=== PATIENT | female | born 1960 | race Caucasian/White ===

== ENCOUNTER → 2016-12-10 | Outpatient (CLI) | payer BC ==
[~2016-12-10] MED LIST: AMT10 PO; PANT40TA PO; SYN75 PO
--- NOTE | 2016-12-10 11:33 | DIAGNOSTIC IMAGING REPORT ---
ABDOMINAL ULTRASOUND, RIGHT UPPER QUADRANT HISTORY: Pain. OTHER SPECIFIED ABNORMAL FINDINGS OF BLOOD. COMPARISON: None. FINDINGS: Pancreas: The pancreas demonstrates a normal echotexture. Liver: Unremarkable. Gallbladder: Prior cholecystectomy CBD: 4 mm Right kidney: No hydronephrosis. IMPRESSION: Normal study post cholecystectomy Electronically signed by: Roberto Snell M.D. 12/10/2016 11:31 AM Dictated Date/Time: 12/10/2016 11:30 AM
== END | disposition home or self-care (01) ==
LOC: C.ULTRBC 10:48
PROVIDERS: ATTEND Family Medicine
DX: R79.89 Other specified abnormal findings of blood chemistry (principal)

== ENCOUNTER → 2017-08-08 | Outpatient (CLI) | payer BC ==
--- NOTE | 2017-08-09 12:57 | MAMMOGRAPHY REPORT ---
BILATERAL DIGITAL SCREENING MAMMOGRAM TOMOSYNTHESIS WITH CAD: 08/08/2017 CLINICAL HISTORY: Routine screening. Patient has no complaints. TECHNIQUE: Breast tomosynthesis in addition to standard 2D mammography was performed. Current study was also evaluated with a Computer Aided Detection (CAD) system. COMPARISON: Comparison is made to exams dated: 08/16/2016 ultrasound, 08/16/2016 mammogram, 08/06/20 16 mammogram, 08/02/2015 mammogram, 07/28/2014 mammogram, and 07/27/2013 mammogram - [facility]. BREAST COMPOSITION: There are scattered areas of fibroglandular density in both breasts. FINDINGS: There is a small 7 mm nodular asymmetry seen within the right lateral breast on the cc vie w, not clearly evident on the MLO view, for which spot compression tomosynthesis views and possible b reast ultrasound are recommended for further evaluation. The remainder of both breasts are stable compared to prior exams, without suspicious masses, calcific ations, or areas of architectural distortion noted. A few scattered bilateral benign-appearing calci fications are not significantly changed. Asymmetry in the left lateral breast on the cc view is stab le compared to prior exams. IMPRESSION: ACR BI-RADS CATEGORY 0: INCOMPLETE EVALUATION: NEED ADDITIONAL IMAGING EVALUATION Right breast asymmetry, for which additional imaging evaluation is recommended. The patient will be called to schedule an appointment. Approximately 10% of breast cancers are not detected with mammography. A negative mammographic report should not delay biopsy if a clinically suggestive mass is present. Radha Terry M.D. /:08/08/2017 16:10:35 Mission Support Specialist: Sunni FRITZ(Nayla)(M), [facility] letter sent: Addl Imaging 0 BI-RADS Code: ACR BI-RADS Category 0: Incomplete Evaluation: Need Additional Imaging Evaluation
== END | disposition home or self-care (01) ==
LOC: C.MAMM 07:04
PROVIDERS: ATTEND Family Medicine
DX: Z12.31 Encounter for screening mammogram for malignant neoplasm of breast (principal); R92.8 Other abnormal and inconclusive findings on diagnostic imaging of breast

== ENCOUNTER → 2017-11-14 | Outpatient (CLI) | payer OTHER ==
--- NOTE | 2017-11-14 15:10 | MAMMOGRAPHY REPORT ---
UNILATERAL RIGHT DIGITAL DIAGNOSTIC MAMMOGRAM TOMOSYNTHESIS AND TARGETED RIGHT ULTRASOUND: 11/14/2017 CLINICAL HISTORY: Callback from screening mammogram for right breast asymmetry. TECHNIQUE: Breast tomosynthesis in addition to standard 2D mammography was performed. Spot compress ion right CC and MLO 2D and tomosynthesis images were obtained. COMPARISON: Comparison is made to exams dated: 08/08/2017 mammogram, 08/16/2016 ultrasound, 08/16/20 16 mammogram, 08/06/2016 mammogram, 08/02/2015 mammogram, and 07/28/2014 mammogram - [facility]. BREAST COMPOSITION: There are scattered areas of fibroglandular density in the right breast. FINDINGS: The previously described asymmetry within the right lateral breast on the cc view persists on the additional spot compression view and measures approximately 6 mm. No clear correlate is seen on the MLO view. The appearance of the asymmetry on the spot compression cc view does not appear sig nificantly changed compared to the July 2016 spot compression views. Targeted ultrasound was performed of the right lateral breast in the region of the mammographic asymm etry. In the right breast at 9:00, 3 cm from the nipple, there is a small cluster of anechoic cysts which measures 9 x 4 x 5 mm. This corresponds with the mammographic asymmetry and is consistent with a microcyst cluster. IMPRESSION: ACR BI-RADS CATEGORY 2: BENIGN, TARGETED ULTRASOUND ACR BI-RADS CATEGORY 2: BENIGN The right lateral breast asymmetry corresponds with a benign 9 mm microcyst cluster in the right 9:00 breast on ultrasound. There is no mammographic or targeted sonographic evidence of malignancy. Retur n to annual mammogram screening schedule is recommended, due July 2018. The patient has been verbally notified of the results. Approximately 10% of breast cancers are not detected with mammography. A negative mammographic report should not delay biopsy if a clinically suggestive mass is present. Radha Terry M.D. /:11/14/2017 12:02:09 Tester Operator Helper: Mellisa Damon, [facility] letter sent: Normal 1/2 BI-RADS Code: ACR BI-RADS Category 2: Benign Ultrasound BI-RADS: ACR BI-RADS Category 2: Benign
== END | disposition home or self-care (01) ==
LOC: C.MAMM 11:27
PROVIDERS: ATTEND Family Medicine
DX: R92.8 Other abnormal and inconclusive findings on diagnostic imaging of breast (principal)

== ENCOUNTER 2023-10-28 15:23 | Observation (INO) ==
[2023-10-28 16:09] LABS: Basophils # (auto) 0.01 K/uL (0.00-0.20); Basophils % (auto) 0.1 %; Eosinophils # (auto) 0.01 K/uL (0.00-0.50); Eosinophils % (auto) 0.1 %; Hematocrit (blood only) 44.5 % (37.0-47.0); Hemoglobin 15.3 g/dl (12.0-16.0); Immature Granulocytes # (auto) 0.04 K/uL (0.01-0.20); Immature Granulocytes % (auto) 0.3 %; Lymphocytes # (auto) 1.18 K/uL (1.20-3.40); Mean Corpuscular Hemoglobin 30.3 pg (25.0-34.0); Mean Corpuscular Hgb Conc 34.4 g/dL (32.0-36.0); Mean Corpuscular Volume 88.1 fL (80.0-100.0); Mean Platelet Volume 10.9 fL (9.4-12.4); Monocytes # (auto) 0.42 K/uL (0.11-0.59); Monocytes % (auto) 2.8 %; Neutrophils # (auto) 13.14 K/uL (1.40-6.50); Neutrophils % (auto) 88.7 %; Platelet Count 295 K/uL (130-400); RDW Coefficient of Variation 13.4 % (11.5-14.5); RDW Standard Deviation 43.2 fL (36.4-46.3); Red Blood Count 5.05 M/uL (4.20-5.40)
[2023-10-28 16:33] LABS: Alanine Aminotransferase 16 U/L (7-52); BUN Creatinine Ratio 21.1 (10-20); Bilirubin,Total 0.4 mg/dl (0.2-1.0); Blood Urea Nitrogen 15 mg/dl (6-23); Calcium 9.1 mg/dl (8.6-10.3); Carbon Dioxide 25 mmol/L (21-32); Chloride 106 mmol/L (98-107); Creatinine Clr Calc Pharmacy 86.7 ml/min; Est GFR (African American) 105.1 ml/min; Est GFR (Non-African American) 90.7 ml/min; Glucose 144 mg/dl (70-99(Fasting)); Total Protein 8.3 gm/dl (6.0-8.3); Troponin I High Sensitivity 4.1 pg/ml (0-14)
[2023-10-28 16:46] LABS: Lipase 7142 U/L (11-82)
--- NOTE | 2023-10-28 16:58 | XRay Report ---
XR chest 1V not portable HISTORY: 62 years-old Female Chest pain, nonspecific COMPARISON: 03/24/2010 TECHNIQUE: PA view the chest FINDINGS: Cardiomediastinal side the normal limits. No pneumothorax, pleural effusion or airspace collimation. Cholecystectomy. Bones appear grossly intact. IMPRESSION: No acute process. ACT 112: Negative or not required by law. The above report was generated using voice recognition software. It may contain grammatical, syntax o r spelling errors. Electronically signed by: Salvador Jean M.D. 10/28/2023 4:56 PM
--- NOTE | 2023-10-28 17:03 | Electrocardiogram Report ---
Test Reason : Blood Pressure : / mmHG Vent. Rate : 102 BPM Atrial Rate : 102 BPM P-R Int : 132 ms QRS Dur : 076 ms QT Int : 406 ms P-R-T Axes : 089 087 077 degrees QTc Int : 529 ms Sinus tachycardia Biatrial enlargement Diffuse Nonspecific ST and T wave abnormality Abnormal ECG When compared with ECG of 25-APR-2010 11:48, HR has increased by [address] and T wave abnormality now present Confirmed by Adama Mckeon ([id number]) on 10/28/2023 5:03:02 PM Referred By: Confirmed By:Adama Mckeon
[2023-10-28 17:19] LABS: Albumin Level 4.7 gm/dl (3.4-5.0)
[2023-10-28] MEDS: HYDROmorphone INJ 0.5 MG/0.5 ML SYR IV STA (17:20)
[2023-10-28] MEDS: SODIUM CHLORIDE 0.9% 1,000 ML IV ONE (17:21)
[2023-10-28 17:31] LABS: Partial Thromboplastin Ratio 1.1; Partial Thromboplastin Time 30 Seconds (21-31); Prothrombin Time 10.7 Seconds (9.0-12.0)
[2023-10-28] MEDS: OPTIRAY 320 500ml IV ONE (17:34)
--- NOTE | 2023-10-28 17:52 | CT Scan Report ---
ABDOMEN AND PELVIS CT WITH IV CONTRAST CT DOSE: 1125.14 mGy.cm HISTORY: Acute generalized abdominal pain abd pain TECHNIQUE: Multiaxial CT images of the abdomen and pelvis were performed following the IV administrat ion of 86 cc of Optiray, A dose lowering technique was utilized adhering to the principles of ALARA. COMPARISON STUDY: 02/04/2009 FINDINGS: No acute lower thoracic abnormality. No free air. Unremarkable spleen, and adrenal glands. Cholecystectomy with likely postsurgical mild intrahepatic and extrahepatic biliary ductal dilation. Patency of the hepatic and portal veins. The splenic vein also appears patent. Interstitial and perip ancreatic edema with small amount of ascites noted within the lesser sac. Homogeneous enhancement of the pancreas. No pancreatic mass, acute pancreatic fluid collection or pancreatic ductal dilation is identified. Mild reactive wall thickening of the duodenal. Tiny hiatal hernia. No hydronephrosis. Unremarkable urinary bladder and uterus. Mild atherosclerosis of the aorta. No lym phadenopathy. Colonic diverticulosis. Mild fecal retention. Normal appendix. No acute fracture. IMPRESSION: 1. Moderate acute pancreatitis. No evidence of pancreatic necrosis or acute peripancreatic fluid whit[place] ection. 2. Cholecystectomy. 3. No bowel obstruction or pneumoperitoneum. 4. Colonic diverticulosis. ACT 112: Negative or not required by law. The above report was generated using voice recognition software. It may contain grammatical, syntax o r spelling errors. Electronically signed by: Salvador Jean M.D. 10/28/2023 5:50 PM
--- NOTE | 2023-10-28 18:22 | Emergency Department Note ---
Impression & Plan Acute pancreatitis ED Provider Note NAME: LETICIA LEWIS AGE: 62 SEX: F : 1960 ARRIVES VIA: Walk-In INFORMANT: Patient, ED PROVIDER(S): Macho Casillas MD CHIEF COMPLAINT: Abdominal pain HPI: This is a 62-year-old female presenting for abdominal pain. Patient states that this afternoon around 11 AM she Began having significant abdominal pain, vomiting patient notes that she was also diaphoretic with this and had significant pressure in her gastric region. She states that her symptoms are actually somewhat improving and that she has less pain in her right now. She has more pressure at this time when she stands. If he does sit down with the pain is excruciating. This feels like previous pancreatitis she has had. She had pancreatitis about 3 previous times. She has quit drinking for the past 12 years. Notes no recent other illicit drug use. 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 ROS: See above HPI for pertinent positives & negatives. A total of 10 systems reviewed and were otherwise negative. PAST MEDICAL HISTORY: See Below PAST SURGICAL HISTORY: See Below FAMILY HISTORY: See Below SOCIAL HISTORY: See Below HOME MEDICATIONS: See Below ALLERGIES: See Below VITALS: See Below PHYSICAL EXAMINATION: General: resting comfortably in no acute distress Head: Normocephalic and atraumatic Eyes: Normal inspection, extraocular muscles intact Ear, nose, throat: Normal external exam Neck: Normal range of motion Respiratory: lungs clear to auscultation bilaterally Cardiovascular: Regular rate/rhythm, no murmur GI: soft, nontender, no guarding or rebound Extremities: nontender, moves all extremities Neuro: The patient awake and alert, appropriately conversive, no focal deficits, symmetric faces Skin: Warm, dry, and intact MEDICAL DECISION MAKING: This is 62-year-old female presenting abdominal pain. Currently patient is somewhat comfortable with pain upon standing and worsening pain when sitting. She does have epigastric tenderness, no rebound or guarding. -Blood work is reviewed showing a leukocytosis up to 14.8. Otherwise her AST is minimally elevated at 42. Otherwise lipase is significant elevated at 7142. Patient has a cholecystectomy making choledocholithiasis very unlikely. -Patient likely has acute pancreatitis based on clinical findings. Will do CT to ensure there is no peripancreatic abscess or necrosis. -Will plan for pain control, nausea pancreatitis Differential diagnosis: Pancreatitis, SBO, renal colic, choledocholithiasis ER treatment provided: See below Diagnostics interpreted by me: ECG: ECG independently interpreted by me with sinus tachycardia, rate of 102, normal axis, normal CT, normal QRS, normal QTc, no ST segment elevations consistent with STEMI criteria] Cardiac Monitoring: An order was placed for continuous cardiac monitoring. The monitor shows a rate of 78 with sinus rhythm. Laboratory studies: As stated above and show below. Imaging studies: See below. Past Med/Surg History Medical History (Updated 10/29/23 @ 00:12 by Macoh Casillas MD) UTI (urinary tract infection) Acute pancreatitis Surgical History History of tooth extraction History of cholecystectomy History of colonoscopy Family History Father Diabetes Coronary heart disease Myocardial infarction Colon cancer Hypertension Heart disease Mother Asthma Other No family history of adverse response to anesthesia No family history of bleeding disorder Social History Smoking Status: Never smoker Second Hand Exposure: No; Do You Dip or Chew Tobacco: No; Tobacco Cessation Education Requested by Patient: No Hx Alcohol Use: No Hx Substance Use: No Preferred Language: Upper Sorbian Communication Ability: Effective 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 current occupational status: retired Other Information That Helps Us Care for You: No Feels Safe at Home: Yes Safety Concerns: Feels Safe At This Time Assistive Devices: Glasses Allergies Allergies Allergy/AdvReac Type Severity Reaction Status Date / Time No Known Allergies Allergy Verified 10/28/23 18:02 Home Meds Home Medications Medication Instructions Recorded Confirmed amitriptyline 10 mg tablet 10 mg PO HS 04/03/19 10/28/23 levothyroxine 100 mcg capsule 100 mcg PO DAILYBB 10/26/19 10/28/23 topiramate 25 mg tablet (Topamax) 12.5 mg PO BID 05/15/22 10/28/23 modafinil 200 mg tablet 200 mg PO QDL 10/28/23 10/28/23 zolpidem 5 mg tablet 5 - 10 mg PO HS 10/28/23 10/28/23 Previous Rx's Medication Instructions Recorded methylphenidate HCl 20 mg tablet 20 mg PO BID Narcolepsy #180 tabs 10/18/23 Results & Data (ED) Vital Signs Vital Signs - 24 hr 10/28/23 15:23 10/28/23 15:23 10/28/23 17:17 Temperature 36.6 C Temperature Source Temporal Artery Scan Pulse Rate 117 H Pulse Rate [Right Finger] 117 H Respiratory Rate 16 16 16 Respiratory Effort / Characteristics Non-Labored Respiratory Depth Normal Respiratory Pattern Regular Blood Pressure 165/114 H Blood Pressure [Right Arm] 139/84 Blood Pressure Mean 131 Blood Pressure Mean [Right Arm] 102 Blood Pressure Position [Right Arm] Sitting Pulse Oximetry 98 92 Oxygen Delivery Method Room Air Sepsis Recent Fever Within 48 Hours No Sepsis New/Unexplained Change in Mental Status N/A Sepsis Action Taken by Nursing No Action Required 10/28/23 17:30 10/28/23 18:30 Temperature Temperature Source Pulse Rate 72 Pulse Rate [Right Finger] 84 Respiratory Rate 24 Respiratory Effort / Characteristics Respiratory Depth Normal Respiratory Pattern Regular Blood Pressure Blood Pressure [Right Arm] 138/84 Blood Pressure Mean Blood Pressure Mean [Right Arm] 102 Blood Pressure Position [Right Arm] Lying Pulse Oximetry 99 Oxygen Delivery Method Room Air Sepsis Recent Fever Within 48 Hours Sepsis New/Unexplained Change in Mental Status Sepsis Action Taken by Nursing Laboratory Data 10/28/23 15:47 10/28/23 16:32 Lab Results 10/28/23 10/28/23 Range/Units 15:47 16:32 WBC 14.80 H (4.8-10.8) K/ul RBC 5.05 (4.20-5.40) M/uL Hgb 15.3 (12.0-16.0) g/dl Hct 44.5 (37.0-47.0) % MCV 88.1 (80.0-100.0) fL MCH 30.3 (25.0-34.0) pg MCHC 34.4 (32.0-36.0) g/dL RDW Std Deviation 43.2 (36.4-46.3) fL RDW Coeff of Sondra 13.4 (11.5-14.5) % Plt Count 295 (130-400) K/uL MPV 10.9 (9.4-12.4) fL Immature Gran % (Auto) 0.3 % Neut % (Auto) 88.7 % Lymph % (Auto) 8.0 % [place] % (Auto) 2.8 % Eos % (Auto) 0.1 % Baso % (Auto) 0.1 % Neut # (Auto) 13.14 H (1.40-6.50) K/uL Lymph # (Auto) 1.18 L (1.20-3.40) K/uL [place] # (Auto) 0.42 (0.11-0.59) K/uL Eos # (Auto) 0.01 (0.00-0.50) K/uL Baso # (Auto) 0.01 (0.00-0.20) K/uL Immature Gran # (Auto) 0.04 (0.01-0.20) K/uL PT Cancelled 10.7 INR Cancelled 1.0 APTT Cancelled 30 PTT Ratio Cancelled 1.1 Sodium TNP 140 Potassium TNP 4.0 Chloride 106 (98-107) mmol/L Carbon Dioxide 25 (21-32) mmol/L Anion Gap TNP BUN 15 (6-23) mg/dl Creatinine 0.71 (0.6-1.2) mg/dl Est Cr Clr Drug Dosing 86.7 ml/min Est GFR ( Amer) 105.1 ml/min Est GFR (Non-Af Amer) 90.7 ml/min BUN/Creatinine Ratio 21.1 H (10-20) Glucose 144 H (70-99(Fasting)) mg/dl Calcium 9.1 (8.6-10.3) mg/dl Total Bilirubin 0.4 (0.2-1.0) mg/dl AST TNP 42 H ALT 16 (7-52) U/L Alkaline Phosphatase TNP 116 H Troponin I High Sens 4.1 (0-14) pg/ml Total Protein 8.3 (6.0-8.3) gm/dl Albumin TNP 4.7 Globulin TNP Albumin/Globulin Ratio TNP Triglycerides 68 (0-150) mg/dl Cholesterol 225 H (0-200) mg/dl LDL Cholesterol, Calc 114 mg/dl VLDL Cholesterol, Calc 14 (0-30) mg/dl HDL Cholesterol 97 mg/dl Cholesterol/HDL Ratio 2.3 (0-5) Lipase 7142 H (11-82) U/L Administered Medications Amitriptyline HCl (Amitriptyline Hcl 10 Mg Tab) 10 mg PO HS WILLIAM Stop: 11/27/23 20:59 Last Admin: 10/28/23 21:01 Dose: 10 mg Documented By: LIV Lactated Ringer's (Lr) 1,000 mls @ 125 mls/hr IV .Q8H WILLIAM Stop: 11/27/23 18:59 Last Admin: 10/28/23 21:00 Dose: 125 mls/hr Documented By: LIV Acetaminophen (Ofirmev) 1,000 mg in 100 mls @ 400 mls/hr IV Q8H PRN PRN Reason: Pain Stop: 10/31/23 18:59 Last Infusion: 10/28/23 22:08 Dose: Infused Documented By: Admin: 10/28/23 21:00 Dose: 400 mls/hr Documented By: LIV Discontinued Medications Hydromorphone HCl (Hydromorphone Inj 0.5 Mg/0.5 Ml Syr) 0.5 mg IV NOW STA Stop: 10/28/23 17:07 Last Admin: 10/28/23 17:20 Dose: 0.5 mg Documented By: INA Sodium Chloride (Nss) 1,000 mls @ 999 mls/hr IV .Q1H1M ONE Stop: 10/28/23 18:07 Last Infusion: 10/28/23 18:39 Dose: Infused Documented By: Admin: 10/28/23 17:21 Dose: 999 mls/hr Documented By: INA Ioversol (Optiray 320 500ml) 86 ml IV ONCE ONE Stop: 10/28/23 17:35 Last Admin: 10/28/23 17:34 Dose: 86 ml Documented By: AKILAH Methylphenidate HCl (Methylphenidate Hcl 10 Mg Tablet) 20 mg PO BID WILLIAM Stop: 11/11/23 20:59 Last Admin: 10/28/23 21:01 Dose: 20 mg Documented By: LIV Zolpidem Tartrate (Zolpidem Tartrate 5 Mg Tab) 5 - 10 mg PO HS WILLIAM Stop: 11/27/23 20:59 Last Admin: 10/28/23 21:01 Dose: 5 mg Documented By: LIV Imaging Data Radiologist's Impression: Chest X-Ray 10/28/23 15:40 XR chest 1V not portable HISTORY: 62 years-old Female Chest pain, nonspecific COMPARISON: 03/24/2010 TECHNIQUE: PA view the chest FINDINGS: Cardiomediastinal side the normal limits. No pneumothorax, pleural effusion or airspace collimation. Cholecystectomy. Bones appear grossly intact. IMPRESSION: No acute process. ACT 112: Negative or not required by law. The above report was generated using voice recognition software. It may contain grammatical, syntax or spelling errors. Electronically signed by: Salvador Jean M.D. 10/28/2023 4:56 PM Abdomen/Pelvis CT 10/28/23 16:[address] WITH IV CONTRAST CT DOSE: 1125.14 mGy.cm HISTORY: Acute generalized abdominal pain abd pain TECHNIQUE: Multiaxial CT images of the abdomen and pelvis were performed following the IV administration of 86 cc of Optiray, A dose lowering technique was utilized adhering to the principles of ALARA. COMPARISON STUDY: 02/04/2009 FINDINGS: No acute lower thoracic abnormality. No free air. Unremarkable spleen, and adrenal glands. Cholecystectomy with likely postsurgical mild intrahepatic and extrahepatic biliary ductal dilation. Patency of the hepatic and portal veins. The splenic vein also appears patent. Interstitial and peripancreatic edema with small amount of ascites noted within the lesser sac. Homogeneous enhancement of the pancreas. No pancreatic mass, acute pancreatic fluid collection or pancreatic ductal dilation is identified. Mild reactive wall thickening of the duodenal. Tiny hiatal hernia. No hydronephrosis. Unremarkable urinary bladder and uterus. Mild atherosclerosis of the aorta. No lymphadenopathy. Colonic diverticulosis. Mild fecal retention. Normal appendix. No acute fracture. IMPRESSION: 1. Moderate acute pancreatitis. No evidence of pancreatic necrosis or acute peripancreatic fluid collection. 2. Cholecystectomy. 3. No bowel obstruction or pneumoperitoneum. 4. Colonic diverticulosis. ACT 112: Negative or not required by law. The above report was generated using voice recognition software. It may contain grammatical, syntax or spelling errors. Electronically signed by: Salvador Jean M.D. 10/28/2023 5:50 PM Discharge Plan Visit Data Chief Complaint: Illness Stated Complaint: ABD PAIN, VOMITING, FEVER, SHAKES ED Provider: Macho Casillas Discharge Problem: Acute pancreatitis Patient Disposition: Admitted As Inpatient Discharge Instructions Interventions: ED Discharge Assessment Last Done: 10/28/23 22:00
--- NOTE | 2023-10-28 18:38 | History & Physical Report ---
Date of Service October 28, 2023 Assessment & Plan (1) Acute pancreatitis: (2) Chronic migraine without aura: (3) Narcolepsy: (4) UTI (urinary tract infection): Plan This is a 62 y/o female patient with PMHx of migraines, narcolepsy, and recurrent pancreatitis who was admitted for management of acute pancreatitis. Acute pancreatitis - A/P CT with IV contrast showing moderate acute pancreatitis without evidence of necrosis or acute peripancreatic fluid collection. No pancreatic mass noted. - Lipase > 7000 on admission - Patient with history of cholecystectomy, making choledocholithiasis unlikely - No alcohol use for 12-13 years - Triglycerides normal in ED labs - Suspect pancreatitis may be related to use of Topamax, but idiopathic cause may also be considered given that patient has been on topamax for somewhere between 10-15 years. Topamax held - Since patient is noting improvement with her pain, will start Clear liquid diet to assess tolerance - IVF with LR @ 125 cc/hr - Zofran for nausea - Pain management with Tylenol 1g IV q8h as needed, and Dilaudid 0.5 mg Q4H as needed for breakthrough pain - Monitor CBC and CMP in am labs UTI? - Patient not referring dysuria or urinary frequency/urgency - Suprapubic tenderness on physical exam - U/A and U/Cx ordered Migraines - Topamax held due to suspicion of this being related to pancreatitis Narcolepsy - Continue Amitriptyline, Methylphenidate, and Zolpidem Hypothyroidism - Last TSH from 2019 was ~4 - Continue Levothyroxine 100 mcg qam Dispo: Med/Surg Fluids: LR @ 125 cc/hr Diet: Clear Liquid Code Status: Full History of Present Illness Chief Complaint: Abdominal pain Primary Care Provider: Christopher Yarbrough MD Ms. Sparks is a 62 y/o female with PMHx of Migraines, Narcolepsy, and prior episodes of acute pancreatitis who arrived to the ED due to epigastric pain associated to N/V, sweats, and shakiness that began at 10 am this morning. She had breakfast without any immediate response, but as the day went on she developed worsening epigastric pain that did not radiate anywhere else until it severe with 10/10 in intensity. Denies having any hematemesis, chest pain, SOB, syncope, weakness, malaise, or any other associated symptom. She has had 3 episodes of pancreatitis in the past, the most recent being 12-13 years ago, so she recognized the symptoms as likely pancreatitis and chose to not eat anything since her symptoms began. On arrival to the ED, she states her pain has improved somewhat but was still severe. She denies any history of drinking alcohol since her last episode of pancreatitis 13 years ago, and only family history she has of pancreatitis is of her grandfather. Surgical history remarkable for cholecystectomy. She has a history of migraines, for which she takes Topamax. Denies NSAID use and only uses Tylenol as needed for pain control. ED course: NSS 1L, pain management with Dilaudid 0.5mg IV x1 Labs/Imaging: CBC without anemia and only remarkable for leukocytosis of 14.80 with neutrophilic predominance, CMP with no electrolyte disturbance, Creatinine of 0.71, Glucose of 144, AST of 42, ALT of 14, and Alk phos of 116. Lipid profile with normal Triglycerides (68). Lipase elevated at 7142. CXR unremarkable. Abdominal/Pelvic CT with IV contrast showing (1) Moderate acute pancreatitis without evidence of pancreatic necrosis or acute peripancreatic fl uid collection, and (2) Colonic diverticulosis. No bowel obstruction or pneumoperitoneum noted. Allergies Allergy/AdvReac Type Severity Reaction Status Date / Time No Known Allergies Allergy Verified 10/28/23 18:02 Home Medications Medication Instructions Recorded Confirmed Type amitriptyline 10 mg tablet 10 mg PO HS 04/03/19 10/28/23 History levothyroxine 100 mcg capsule 100 mcg PO DAILYBB 10/26/19 10/28/23 History topiramate 25 mg tablet (Topamax) 12.5 mg PO BID 05/15/22 10/28/23 History methylphenidate HCl 20 mg tablet 20 mg PO BID Narcolepsy #180 tabs 10/18/23 10/28/23 Rx modafinil 200 mg tablet 200 mg PO QDL 10/28/23 10/28/23 History zolpidem 5 mg tablet 5 - 10 mg PO HS 10/28/23 10/28/23 History Past Med/Surg History Medical History (Updated 10/28/23 @ 18:51 by Ofelia Szymanski MD) UTI (urinary tract infection) Acute pancreatitis Surgical History History of tooth extraction History of cholecystectomy History of colonoscopy Family History Father Diabetes Coronary heart disease Myocardial infarction Colon cancer Hypertension Heart disease Mother Asthma Other No family history of adverse response to anesthesia No family history of bleeding disorder Social History Smoking Status: Never smoker Do You Dip or Chew Tobacco: No; Hx Alcohol Use: No Hx Substance Use: No Preferred Language: Bulgarian marital status: Current Living Situation: Family current occupational status: retired Feels Safe at Home: Yes Review of Systems Review of Systems: As per HPI Physical Exam Physical Exam: GENERAL: AAOx3, Afebrile, No acute distress HEAD: AT, NC EYES: EOM intact, CIRILO THROAT: Normal to visual exam CHEST: no deformities, symmetric chest expansions with respirations CARDIO: RRR, no r/m/g PULMONARY: CTA bilaterally, normal respiratory effort, no respiratory distress GI: soft. non-distended, tenderness to palpation of epigastric and suprapubic region, present but decreased BS : No medellin EXTREMITIES: no swelling in bilateral LE, no calf tenderness bilaterally SKIN: no rashes Results & Data Results & Data Vital Signs (Past 12 Hours) Vital Signs Temp Pulse Pulse Resp BP BP Pulse Ox 10/28/23 18:30 84 24 138/84 99 10/28/23 17:30 72 10/28/23 17:17 117 H 16 139/84 92 10/28/23 15:23 16 10/28/23 15:23 36.6 C 117 H 16 165/114 H 98 O2 Del Method 10/28/23 18:30 Room Air 10/28/23 17:30 10/28/23 17:17 Room Air 10/28/23 15:23 10/28/23 15:23 Supervising Physician Co-Signing Physician Notes Patient seen and examined, chart reviewed, case discussed with Ofelia Szymanski and I agree with the assessment and plan as above except as otherwise noted Labs and images reviewed Taya is a 62-year-old female with a past medical history of pancreatitis with former alcohol use abstinent for 12 years, past history of cholecystectomy and 3 total prior episodes of pancreatitis who presents with 1 day of abdominal pain, nausea, vomiting and gastric pressure which feels similar to her prior episodes of pancreatitis. On ER initial evaluation she had a leukocytosis without left shift in the setting of vomiting, normal creatinine, no acute transaminitis (mildly elevated AST at baseline), and a lipase elevation at 7142. Calcium was normal. CT of the abdomen and pelvis showed moderate acute pancreatitis without peripancreatic fluid or necrosis, and confirmed post cholecystectomy. Patient is on topiramate which has rare associated cases of pancreatitis; however has been stable on this for many years. She also has a history of narcolepsy without cataplexy for which she has been stable on methylphenidate. Takes amitriptyline for headache. On exam +epigastric TTP, no rebound/guarding. Pancreatitis, recurrent. Without alcohol use. No evidence of residual gallstones on CT and s/p choley. Patient is on Topamax which can be associated with pancreatitis, this has been held. No prior history of hypertriglyceridemia; triglyceride level normal on admit. Calcium is normal. Agree with clears as tolerated, if worsening pain then may make strict n.p.o. agree with multimodal pain control, Tylenol with hydromorphone every 4 hours for breakthrough. Will continue IV fluids with LR at 125cc/hr. CBC/BMP daily. No GERSON on admission. No evidence of superimposed infection, necrosis, abscess, or peripancreatic fluid. admit to med/surg.
[2023-10-28 18:52] LABS: Chol HDL Ratio 2.3 (0-5)
--- NOTE | 2023-10-28 18:57 | Billing Data ---
Date of Service October 28, 2023 Coding Level of Care Code 15392 INT INP/OBS CARE
[2023-10-28] MEDS ORDERED: HYDROmorphone INJ 0.5 MG/0.5 ML SYR IV PRN (18:59)
[2023-10-28] MEDS: ACETAMINOPHEN 1,000 MG/100 ML VIAL IV PRN (21:00)
[2023-10-28] MEDS: LACTATED RINGER'S 1,000 ML IV SCH (21:00)
[2023-10-28] MEDS: AMITRIPTYLINE HCL 10 MG TAB PO SCH (21:01)
[2023-10-28] MEDS: METHYLPHENIDATE HCL 10 MG TABLET PO SCH (21:01)
[2023-10-28] MEDS: ZOLPIDEM TARTRATE 5 MG TAB PO SCH (21:01)
[2023-10-28] MEDS ORDERED: ONDANSETRON INJ 2 MG/ML 2 ML VIAL IV PRN (22:08)
[2023-10-28 22:42] LABS: Appearance Urine Clear (Clear); Bilirubin Urine Negative (Negative); Blood Urine Negative (Negative); Color Urine Yellow; Glucose Urine UA Negative (Negative); Ketones Urine 2+ (Negative); Leukocyte Esterase Urine Negative (Negative); Nitrite Urine Negative (Negative); Protein Urine Negative (Negative); Specific Gravity Urine > 1.045 (1.000-1.030); Urobilinogen Urine Negative (Negative); pH Urine 7.5 (4.5-7.5)
--- OUTSIDE RECORDS SUMMARY | 2023-10-29 03:14 | External Medical Summary | Continuity of Care Document ---
Author Name Unknown Organization [address] [phone] Care Team Providers Care Director [employer] Name Role Phone Christopher Yarbrough Primary Care Physician [phone] [facility]counter [facility] [id number] Date(s): 08/28/23 - 08/28/[address] [address] [phone] Encounter Diagnosis Need for shingles vaccine(Discharge Diagnosis) - 08/28/23 Discharge Disposition: Home or Self Care Attending Physician: LIAN Rodriguez Tara Referring Physician: MD Yarbrough Juan Allergies, Adverse Reactions, Alerts No Known Allergies Immunizations Given and Recorded Vaccine Date Status Refusal Reason zoster vaccine, inactivated 08/28/23 Given zoster vaccine, inactivated 06/06/23 Given influenza virus vaccine, inactivated 06/06/23 Give n influenza virus vaccine, inactivated 06/05/21 Kg rded influenza virus vaccine, inactivated 09/23/19 Give n influenza virus vaccine, inactivated 06/16/18 Give n influenza virus vaccine, inactivated 05/03/17 Give n influenza virus vaccine, inactivated 05/14/16 Give n influenza virus vaccine, inactivated 06/06/15 Give n influenza virus vaccine, inactivated 06/04/14 Give n influenza virus vaccine, inactivated 07/17/13 Give n SARS-CoV-2 (COVID-19) mRNA BNT-162b2 vax 1 11/24/20 Recorded SARS-CoV-2 (COVID-19) mRNA BNT-162b2 vax 2 11/03/20 Recorded tetanus/diphtheria/pertuss, acel (Tdap) 11/08/14 G iven 1Result Comment: 2021-07-09: Historical information-source unspecified 2Result Comment: 2021-07-09: Historical information-source unspecified Medications amitriptyline 10 mg oral tablet Start: 08/09/23 12:29:00 EST, See Instructions, Disp# 45 tab, Refills: 3, change to 1 tab daily as of 06/06/2023., Pharmacy: [facility] Start Date: 08/09/23 Status: Ordered calcium gluconate 650 mg oral tablet Start: 07/11/12 16:13:00 EST, 1 tab, PO, Daily Start Date: 07/11/12 Status: Ordered levothyroxine 100 mcg (0.1 mg) oral tablet Start: 08/09/23 12:29:00 EST, 1 tab, PO, Daily, Disp# 90 tab, Refills: 3, Pharmacy: [facility] Start Date: 08/09/23 Status: Ordered methylphenidate 20 mg oral tablet Start: 06/30/12 15:13:00 EST, 1 tab, PO, bid, Refills: 0 Start Date: 06/30/12 Status: Ordered Provigil 200 mg oral tablet Start: 11/06/13 15:39:00 EDT, See Instructions, 1 tab PO at lunchtime Start Date: 11/06/13 Status: Ordered RSV vaccine preF3, recombinant preservative-free intramuscular injection Start: 06/06/23 9:34:00 EDT, 0.5 mL, IM, ONCE, Disp# 0.5 mL, Refills: 0, have shot in pharmacy, Pharmacy: [facility]/pharmacy #[id number] Start Date: 06/06/23 Status: Ordered topiramate 25 mg oral tablet Start: 07/08/23 10:35:00 EST, See Instructions, Disp# 90 tab, Refills: 3, TAKE 1/2 TABLET (12.5MG) BY MOUTH 2 TIMES A DAY, Pharmacy: [facility] Start Date: 07/08/23 Status: Ordered Vitamin D3 2000 intl units oral tablet Start: 07/11/12 16:14:00 EST, 1 tab, PO, Daily Start Date: 07/11/12 Status: Ordered zolpidem 5 mg oral tablet Start: 07/03/13 9:56:00 EST, 1 tab, PO, qhs, change to 2 tab at HS, PRN: as needed for sleep Start Date: 07/03/13 Status: Ordered Problem List Condition Confirmation Course Effective Dates Status Health St atus Informant Colon polyp Confirmed Active DDD (degenerative disc disease), cervical Confirmed Active GERD Confirmed Active Hiatal hernia Confirmed Active History of basal cell carcinoma of skin Confirmed Active Hypothyroid Confirmed Active IBS - Irritable bowel syndrome Confirmed Active INSOMNIA Confirmed Active Menopause Confirmed Active Migraine Confirmed Active Narcolepsy 1 Confirmed Active Tension type headache Confirmed Active VERTIGO Confirmed Active 1sees Dr. Camarena Diagnosis Diagnosis Type Effective Dates Health Status Cl inical Service Informant Need for shingles vaccine Discharge Diagnosis 08/28/23 Non-Specified Procedures Procedure Date Related Diagnosis Body Site Status Mammogram - screening 1 11/02/21 C ompleted Colonoscopy 2, 3 09/14/21 Complete d PAP test date 4 08/10/21 Completed Mammogram - screening 5 10/29/19 C ompleted MRI of head 6 05/07/18 Completed Diagnostic mammogram 7 11/14/17 Co mpleted Mammogram 8 08/08/17 Completed PAP test date 9 05/03/17 Completed Ultrasound-Abdominal Right u pper quadrant 10 12/10/16 Completed Mammogram 11 08/06/16 Completed Mammogram 12 08/02/15 Completed Eye examination 13 03/02/15 Comple carmen Colonoscopy 14 01/31/15 Completed Mammogram 15 07/28/14 Completed Endoscopy-upper GI 16 12/04/13 Com pleted MRI of brain 07/14/13 Completed Shave biopsy of skin 12/26/12 Comp leted Colonoscopy 2009 Completed Cholecystectomy Completed [facility] Completed 1Impression: There is no mammographic evidence of malignancy. A 1 year screening mammogram is recommended. (11/03/2022). The patient will receive written notifcation of the results. 2COLO to cecum, 8 mm polyp sigmoid HS, redundant, diverticulosis. 31 tubular adenoma removed. Repeat colonoscopy in 5 years. 4Satisfactory for evaluation. Endocervical/transformation zone component present. 5There is no mammographic evidence of malignancy. A 1 year screening mammogram is recommended. The patient will receive written notification of the results. 6Impression: normal study 7The right lateral breast asymmetry corresponds with a benign 9 mmm microcyst cluster in the right 9:00 breast on US. There is no mammographic or targeted sonographic evidence of malignancy. Return toannual mammogram screening schedule is recommended due July 2018. 8Cat 0- incomplete. 9Negative for intraepithelial lesion or malignancy. 10Normal study post cholecystectomy 11The 4.5 mm focal asymmetry in the right breast needs additional evauation 12Normal 13vision with correction both- right- 20 left- 20 14Diverticulosis in the sigmoid colon. No specimens collected. Repeat in 5 years. 15Normal 16normal Social History Social History Type Response Smoking Status Never smoked cigaret dimitry Sex Female Patient Care team information Care Team Personnel Name: MD Yarbrough Juan Position: Physician - Family Med Member Role: Primary Care Provider Address: Address: [address] [place] [id number] [place] Care Team Related Persons Name: ADELITA LEWIS Address: home [address], [place] [phone] Name: ELKE LEWIS Address: home [address], [place] [id number] Name: ELKE LEWIS Address: [facility] Address: [address] [id number]
--- OUTSIDE RECORDS SUMMARY | 2023-10-29 03:14 | External Medical Summary | Continuity of Care Document ---
Author Name Unknown Organization [address] [facility] [address] [place], [place] [id number] Care Team Providers Care Molecular Spectroscopist Name Role Phone Christopher Yarbrough Primary Care Physician [phone] [facility]counter [facility] [id number] Date(s): 06/20/23 - 06/20/23 [place] [address] [facility] [place] [address] [place] [phone] Encounter Diagnosis Abdominal cramping(Discharge Diagnosis) - 06/19/23 Elevated LFTs(Discharge Diagnosis) - 06/19/23 Hypothyroid(Discharge Diagnosis) - 06/19/23 IBS - Irritable bowel syndrome(Discharge Diagnosis) - 06/19/23 Iron excess(Discharge Diagnosis) - 06/19/23 Discharge Disposition: Home or Self Care Attending Physician: MD Yarbrough Juan Referring Physician: MD Yarbrough Juan Allergies, Adverse Reactions, Alerts No Known Allergies Assessment and Plan Extracted from: Title:TeleHealth Visit Note Author:MD Yarbrough Juan Date:06/20/23 1.Abdominal cramping improved. cont elavil 10mg at HS daily. 2.Elevated LFTs resolved. 3.Hypothyroid Hypothyroidism: Controlled. Continue current medication. 4.IBS - Irritable bowel syndrome improved. improved. cont elavil 10mg at HS daily. 5.Iron excess resolved. BTO 6 months. Pre-visit plannin min Ueaz-lg-ahel visit:15 min Post-visit:3 min Total visit time:25 min Immunizations Given and Recorded Vaccine Date Status Refusal Reason zoster vaccine, inactivated 06/06/23 Given influenza virus [...] Medications amitriptyline 10 mg oral tablet Start: 09/18/22 17:10:00 EST, See Instructions, Disp# 45 tab, Refills: 3, change to 1 tab daily as of 06/06/2023., Pharmacy: [facility] Start Date: 09/18/22 Status: Ordered calcium gluconate 650 mg oral tablet Start: 07/11/12 16:13:00 EST, 1 tab, PO, Daily Start Date: 07/11/12 Status: Ordered levothyroxine 100 mcg (0.1 mg) oral tablet Start: 09/18/22 17:10:00 EST, 1 tab, PO, Daily, Disp# 90 tab, Refills: 3, Pharmacy: [facility] Start Date: 09/18/22 Status: Ordered methylphenidate 20 mg oral tablet [...] Refills: 0, have shot in pharmacy, Pharmacy: [facility]/pharmacy #[id number] Start Date: 06/06/23 Status: Ordered topiramate 25 mg oral tablet Start: 07/09/22 9:17:00 EST, See Instructions, Disp# 90 tab, Refills: 3, TAKE 1/2 TABLET (12.5MG) BY MOUTH 2 TIMES A DAY, Pharmacy: [facility] Start Date: 07/09/22 Status: Ordered Vitamin D3 2000 intl units oral tablet Start: 07/11/12 16:14:00 EST, 1 tab, PO, Daily Start Date: 07/11/12 Status: Ordered zolpidem 5 mg oral tablet Start: 07/03/13 9:56:00 EST, 1 tab, PO, qhs, change to 2 tab at HS, PRN: as needed for sleep Start Date: 07/03/13 Status: Ordered Mental Status 06/20/23 Barriers to Learning one year None evide nt Mandatory Health Literacy Documentation Yes Health Literacy Communication Barriers N ever Primary Language Greek Problem List Condition Confirmation Course Effective Dates [...] Diagnosis Diagnosis Type Effective Dates Health Status Clinical Service Informant Iron excess Discharge Diagnosis 06/19/23 IBS - Irritable bowel syndrome Discharge Diagnosis 06/19/23 Elevated LFTs Discharge Diagnosis 06/19/23 Abdominal cramping Discharge Diagnosis 06/19/23 Hypothyroid Discharge Diagnosis 06/19/23 Procedures Procedure Date Related Diagnosis Body Site [...] Comp leted Colonoscopy 2009 Completed Cholecystectomy Completed [place] [facility] Completed 1Impression: There is no mammographic [...] additional evauation 12Normal 13vision with correction both- 20/25 right- 20/25 left- 20/25 14Diverticulosis in the sigmoid colon. No specimens collected. Repeat in 5 years. 15Normal 16normal Social History Social History Type Response Smoking Status Never smoked cigaret dimitry Sex Female FCM Outpt Note * MD Yarbrough Juan: PERFORM Event Display: FCM Outpt Note Authored Date: TeleHealth Visit Note I have confirmed the patients name and date of . The patient has consented to this service,and I have advised the patient that this is a billable visit for which they may be subject to a copay. [ x_ ] The patient has initiated this visit after he/she was informed of the availability of telehealth for this medically necessary visit. [ _ ] The provider initiated this visit after explaining the need for this visit to the patient, who has consented to this virtual visit. I am located at my: [ _x ] Office [ _ ] Home [ _ ] Other: _ The patient is located at: [ _x ] Home [ _ ] Other: _ This visit was conducted via live audio/video technology: [ x_ ] [facility] [ _ ] Zoom This visit was conducted via [ _ ] Telephone, and was not related to a visit or procedure that occurred within the past 7 days. Telephone Only Visit: Reason for audio only visit was [ _ ] no internet connection available [ _ ] Other: _. Total time spent communicating with the patient: _ minutes Chief Complaint 2 week f/u- better than she was 2 weeks ago. Has cold currently with migraine. History of Present Illness f/u abd cramp/IBS and labs. Elavil was increased from 1/2 tabto 1 tab at HS 2 weeks ago.feels muchless cramp and nausea. A little more dry mouth but tolerable. Would like to cont current dose of med. Lab reviewed: 30 Day Labs Last Updated 06/20/23 08:17 06/17/23 0726 Triglycerides-QST77 Non HDL Chol-GXQ625 HDL Chol-QST82 Chol/HDLC Ratio-QST2.5 Cholesterol-BHY730L LDL Chol-ZTW587L TSH (QST)1.01 Ferritin (QST)53 Iron-Quest83 Total IBC-Mkqmu260 Fe Sat-Quest30 Alkaline Phosphatase (ALP)106 ALT13 Hepatitis C Avfunowd-NZLZHM-WPTDLZKC Bilirubin, Total (QST)0.4 HBsAb-Quest<5L Total Hep A Fd-KyofhDQQ-PRVKNYAY FZzSx-AbjeuGES-VOQNBUCR TNtDl-OsctpISW-GKNEQLPY Transferrin-Yurjq787 Physical Exam GENERAL: A&Ox3. No acute distress. Affect and speech appropriate. Assessment/Plan 1.Abdominal cramping improved. cont elavil 10mg at HS daily. 2.Elevated LFTs resolved. 3.Hypothyroid Hypothyroidism: Controlled. Continue current medication. 4.IBS - Irritable bowel syndrome improved. improved. cont elavil 10mg at HS daily. 5.Iron excess resolved. BTO 6 months. Pre-visit plannin min Kmpf-ua-klgb visit:15 min Post-visit:3 min Total visit time:25 min Problem List/Past Medical History Ongoing Colon polyp DDD (degenerative disc disease), cervical GERD Hiatal hernia History of basal cell carcinoma of skin Hypothyroid IBS - Irritable bowel syndrome INSOMNIA Menopause Migraine Narcolepsy Tension type headache VERTIGO Historical Elevated LFTs HYPERTENSION Iron excess Pancreatitis Procedure/Surgical History Mammogram - screening (2021)Colonoscopy (09/14/2021)PAP test date (08/10/2021)Mammogram - screening (10/29/2019)MRI of head (05/07/2018)Diagnostic mammogram (11/14/2017)Mammogram (08/08/2017)PAP test date (05/03/2017)Ultrasound-Abdominal Right upper quadrant ( 017)Mammogram (08/06/2016)Mammogram (08/02/2015)Eye examination (03/02/2015)Colonoscopy(01/31/2015)Mammogram (07/28/2014)Endoscopy- upper GI (12/04/2013)MRI of brain (07/14/2013)Shave biopsy of skin (12/26/2012)Colonoscopy (2009)[place] Teeth[facility]olecystectomy Medications amitriptyline(amitriptyline 10 mg oral tablet), See Instructions, 3 refills calcium gluconate(calcium gluconate 650 mg oral tablet), 650 mg= 1 tab, PO, Daily cholecalciferol(Vitamin D3 2000 intl units oral tablet), 2000 Int_Unit= 1 tab, PO, Daily levothyroxine(levothyroxine 100 mcg (0.1 mg) oral tablet), 100 mcg= 1 tab, PO, Daily, 3 refills methylphenidate(methylphenidate 20 mg oral tablet), 20 mg= 1 tab, PO, bid modafinil(Provigil 200 mg oral tablet), See Instructions RSV vaccine preF3, recombinant(RSV vaccine preF3, recombinant preservative-free intramuscular injection), 60 mcg= 0.5 mL, IM, ONCE topiramate(topiramate 25 mg oral tablet), See Instructions, 3 refills zolpidem(zolpidem 5 mg oral tablet), 5 mg= 1 tab, PO, qhs, PRN Allergies NKA Social History Smoking Status Never smoked cigarettes Alcohol - Denies Alcohol Use Exercise - Regular exercise Exercise type:Walking - Comments: stretch Tobacco - Denies Tobacco Use Family History Breast cancer: Maternal Aunt. Colon cancer..: Father. Diabetes: Father. High Blood Pressure: Mother. Health Status Family Member(s) Immunizations Vaccine Date Status zoster vaccine, inactivated 06/06/2023 Given influenza virus vaccine, inactivated 06/06/2023 Given influenza virus vaccine, inactivated 06/05/2021 Recorded SARS-CoV-2 (COVID-19) mRNA BNT-162b2 vax 11/24/2020 Recorded Comments : 2021-07-09: Historical information-source unspecified SARS-CoV-2 (COVID-19) mRNA BNT-162b2 vax 11/03/2020 Recorded Comments : 2021-07-09: Historical information-source unspecified influenza virus vaccine, inactivated 09/23/2019 Given influenza virus vaccine, inactivated 06/16/2018 Given influenza virus vaccine, inactivated 05/03/2017 Given influenza virus vaccine, inactivated 05/14/2016 Given influenza virus vaccine, inactivated 06/06/2015 Given tetanus/diphtheria/pertuss, acel (Tdap) 11/08/2014 Given influenza virus vaccine, inactivated 06/04/2014 Given influenza virus vaccine, inactivated 07/17/2013 Given Recommendations Health Maintenance Pending(in the next year) Due Adult COVID-19 Vaccination due06/20/23Unknown Frequency Due In Future Adult Influenza Vaccine not due until02/24/24and every 1year Body Mass Index not due until06/05/24and every 1year Satisfied(in the past 1 year) Satisfied Adult Influenza Vaccine on06/06/23.Satisfied by DEVON Liu Jenna Body Mass Index on06/06/23.Satisfied by DEVON Liu Jenna Hepatitis C Screening on06/17/23.Satisfied by Contributor_system, [email or web address] Shingles Vaccine on06/06/23.Satisfied by DEVON Liu Jenna Electronic Signature on File Electronically Reviewed/Signed by: Christopher Yarbrough MD Author Signature Dt/Tm:06/20/2023 12:10 PM Department of Family Medicine [facility] Patient Care team information Care Team Personnel Name: MD Yarbrough Juan Position: Physician - Family Med Member Role: Primary Care Provider Address: Address: [address] [place] [address], [place] [address] Care Team Related Persons Name: ADELITA LEWIS Address: home [address] [facility], [place] [phone] Name: ELKE LEWIS Address: [place] Address: home [address], [place] [phone] Name: ELKE LEWIS Address: home [address], [place] [phone]
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
[2023-10-29] MEDS: LEVOTHYROXINE SODIUM 100 MCG TABLET PO SCH (06:01)
[2023-10-29] MEDS ORDERED: HYDROmorphone INJ 0.5 MG/0.5 ML SYR IV PRN (07:00)
[2023-10-29] MEDS: METHYLPHENIDATE HCL 10 MG TABLET PO SCH (07:41)
[2023-10-29 07:47] LABS: Basophils # (auto) 0.02 K/uL (0.00-0.20); Basophils % (auto) 0.3 %; Eosinophils # (auto) 0.12 K/uL (0.00-0.50); Eosinophils % (auto) 1.8 %; Hematocrit (blood only) 35.8 % (37.0-47.0); Hemoglobin 12.1 g/dl (12.0-16.0); Immature Granulocytes # (auto) 0.01 K/uL (0.01-0.20); Immature Granulocytes % (auto) 0.1 %; Lymphocytes # (auto) 1.97 K/uL (1.20-3.40); Lymphocytes % (auto) 29.3 %; Mean Corpuscular Hemoglobin 29.8 pg (25.0-34.0); Mean Corpuscular Hgb Conc 33.8 g/dL (32.0-36.0); Mean Corpuscular Volume 88.2 fL (80.0-100.0); Mean Platelet Volume 10.8 fL (9.4-12.4); Monocytes # (auto) 0.53 K/uL (0.11-0.59); Monocytes % (auto) 7.9 %; Neutrophils # (auto) 4.08 K/uL (1.40-6.50); Neutrophils % (auto) 60.6 %; Platelet Count 232 K/uL (130-400); RDW Coefficient of Variation 13.3 % (11.5-14.5); RDW Standard Deviation 43.2 fL (36.4-46.3); Red Blood Count 4.06 M/uL (4.20-5.40); White Blood Count 6.73 K/ul (4.8-10.8)
[2023-10-29 08:12] LABS: Albumin Globulin Ratio 1.5 (0.9-2); Albumin Level 3.5 gm/dl (3.4-5.0); BUN Creatinine Ratio 21.1 (10-20); Bilirubin,Total 0.5 mg/dl (0.2-1.0); Calcium 8.2 mg/dl (8.6-10.3); Creatinine Clr Calc Pharmacy 108.3 ml/min; Est GFR (African American) 114.3 ml/min; Est GFR (Non-African American) 98.7 ml/min; Globulin 2.4 gm/dl (2.5-4.0); Potassium 3.7 mmol/L (3.5-5.1); Total Protein 5.9 gm/dl (6.0-8.3)
--- NOTE | 2023-10-29 09:06 | Hospitalist Progress Note ---
Date of Service October 29, 2023 Assessment & Plan (1) Acute pancreatitis: (2) Chronic migraine without aura: (3) Narcolepsy: (4) UTI (urinary tract infection): Plan 62 yo female patient with PMHx of migraines, narcolepsy, and recurrent pancreatitis who was admitted for management of acute pancreatitis. Acute pancreatitis - CT A/P: moderate acute pancreatitis without evidence of necrosis or acute peripancreatic fluid collection. No pancreatic mass noted. - Lipase > 7000 on admission - H/o of cholecystectomy, No alcohol use for 12-13 years, TGs wnl; idiopathic vs ?topimax induced - currently on hold - IVF, pain control - tolerating clears - advance to fulls Suprapubic tenderness - likely referred pain 2/2 pancreatitis. No dysuria or urinary frequency/urgency. UA does not appear infectious. Urine cx pending. - d/c abx at this time Migraines - Topamax held as above. May consider an alternative migraine ppx. Narcolepsy - Continue Amitriptyline, Methylphenidate, and Zolpidem Hypothyroidism - Last TSH from 2019 was ~4 - Continue Levothyroxine 100 mcg qam Dispo: Med/Surg Fluids: LR @ 150 cc/hr Diet: advance to fulls for dinner Code Status: Full Admission and Anticipated Discharge Date Admission Date: October 28, 2023 Supervising Physician Co-Signing Physician Notes Attending Physician Supervision Note: I independently interviewed and examined the patient and verified the hunt histor y and physical, reviewed labs and image studies and agree with findings and care plan noted above. pain improved but still sore in upper abdomen. no nausea. had clear liquid for lunch and the stomach felt more sore. comfortable. abdomen - BS +, epigastric tenderness ++, soft, no guarding/rigidity. Acute pancreatitis with h/o recurrence - No alc use, no gallstones on CT/s/p choley. normal triglycerides. held topamax on admission for possible etiology. - pain better controlled. advancing diet as tolerated. will d/c IVF once PO intake ensured. prn pain control meds - tylenol with hydromorphone every 4 hours for breakthrough. Migraine - to address topamax replacement with pcp on discharge. Early ambulation Subjective Pt is a 62-year-old female with hx of pancreatitis, GERD, migraines, narcolepsy, and IBS who presented to the ED yesterday for abdominal pain. Pt reports vomiting and was also diaphoretic during the pain onset. Pain was primarily in the epigastric region which radiated to the back. Currently, patient is a lot better and does not report any pain when laying down, only slight discomfort and pressure when sitting upright. She had pancreatitis about 3 previous times. The first episode was around 2006 which was the worse and required a cholecystectomy. She has quit drinking for the past 12 years and has not used any new medications within the past few month. Pt also denies having any recent infection, trauma or operative procedures. Review of Systems 2 Respiratory: No SOB or cough Cardiovascular: Additional Comments: No chest pain or palpitations Gastrointestinal: Epigastric pain, firmer stools than usual (normally loose bowels due to IBS), no melena Genitourinary: No changes in urinary frequency. No dysuria Musculoskeletal: No muscle weakness or loss of sensation. Integumentary: No rashes or bruises. Physical Exam Physical Exam: GENERAL: AAOx3, Afebrile, No acute distress EYES: EOM intact, CIRILO CARDIO: RRR, no r/m/g, no carotid bruits, 2+ radial and distal pulses PULMONARY: CTA bilaterally, normal respiratory effort, no respiratory distress GI: soft. non-distended, tenderness to palpation of epigastric and umbilical region, normal bs EXTREMITIES: no swelling in bilateral LE, no calf tenderness bilaterally, no edema SKIN: no rashes or bruises Results & Data Results & Data Vital Signs (Past 12 Hours) Vital Signs Temp Pulse Pulse Resp BP Pulse Ox O2 Del Method 10/29/23 07:00 Room Air 10/29/23 06:48 36.4 C L 66 16 119/69 97 Room Air 10/28/23 22:10 Room Air 10/28/23 22:10 Room Air 10/28/23 22:10 36.5 C 78 16 129/74 98 Room Air 10/28/23 21:27 78 18 120/78 99 Room Air 10/28/23 21:18 68 Laboratory Results 10/29/23 10/28/23 10/28/23 Range/Units 07:00 22:29 16:32 WBC 6.73 (4.8-10.8) K/ul RBC 4.06 L (4.20-5.40) M/uL Hgb 12.1 D (12.0-16.0) g/dl Hct 35.8 L (37.0-47.0) % MCV 88.2 (80.0-100.0) fL MCH 29.8 (25.0-34.0) pg MCHC 33.8 (32.0-36.0) g/dL RDW Std Deviation 43.2 (36.4-46.3) fL RDW Coeff of Sondra 13.3 (11.5-14.5) % Plt Count 232 (130-400) K/uL MPV 10.8 (9.4-12.4) fL Immature Gran % (Auto) 0.1 % Neut % (Auto) 60.6 % Lymph % (Auto) 29.3 % [place] % (Auto) 7.9 % Eos % (Auto) 1.8 % Baso % (Auto) 0.3 % Neut # (Auto) 4.08 (1.40-6.50) K/uL Lymph # (Auto) 1.97 (1.20-3.40) K/uL [place] # (Auto) 0.53 (0.11-0.59) K/uL Eos # (Auto) 0.12 (0.00-0.50) K/uL Baso # (Auto) 0.02 (0.00-0.20) K/uL Immature Gran # (Auto) 0.01 (0.01-0.20) K/uL PT 10.7 INR 1.0 APTT 30 PTT Ratio 1.1 Sodium 139 140 Potassium 3.7 4.0 Chloride 110 H (98-107) mmol/L Carbon Dioxide 24 (21-32) mmol/L Anion Gap 5 BUN 12 (6-23) mg/dl Creatinine 0.57 L (0.6-1.2) mg/dl Est Cr Clr Drug Dosing 108.3 ml/min Est GFR ( Amer) 114.3 ml/min Est GFR (Non-Af Amer) 98.7 ml/min BUN/Creatinine Ratio 21.1 H (10-20) Glucose 83 (70-99(Fasting)) mg/dl Calcium 8.2 L (8.6-10.3) mg/dl Total Bilirubin 0.5 (0.2-1.0) mg/dl AST 29 42 H ALT 11 (7-52) U/L Alkaline Phosphatase 85 116 H Troponin I High Sens (0-14) pg/ml Total Protein 5.9 L D (6.0-8.3) gm/dl Albumin 3.5 4.7 Globulin 2.4 L Albumin/Globulin Ratio 1.5 Triglycerides 68 (0-150) mg/dl Cholesterol 225 H (0-200) mg/dl LDL Cholesterol, Calc 114 mg/dl VLDL Cholesterol, Calc 14 (0-30) mg/dl HDL Cholesterol 97 mg/dl Cholesterol/HDL Ratio 2.3 (0-5) Lipase (11-82) U/L Urine Color Yellow Urine Appearance Clear (Clear) Urine pH 7.5 (4.5-7.5) Ur Specific [place] > 1.045 H (1.000-1.030) Urine Protein Negative (Negative) Urine Glucose (UA) Negative (Negative) Urine Ketones 2+ H (Negative) Urine Blood Negative (Negative) Urine Nitrite Negative (Negative) Urine Bilirubin Negative (Negative) Urine Urobilinogen Negative (Negative) Ur Leukocyte Esterase Negative (Negative) 10/28/23 Range/Units 15:47 WBC 14.80 H (4.8-10.8) K/ul RBC 5.05 (4.20-5.40) M/uL Hgb 15.3 (12.0-16.0) g/dl Hct 44.5 (37.0-47.0) % MCV 88.1 (80.0-100.0) fL MCH 30.3 (25.0-34.0) pg MCHC 34.4 (32.0-36.0) g/dL RDW Std Deviation 43.2 (36.4-46.3) fL RDW Coeff of Sondra 13.4 (11.5-14.5) % Plt Count 295 (130-400) K/uL MPV 10.9 (9.4-12.4) fL Immature Gran % (Auto) 0.3 % Neut % (Auto) 88.7 % Lymph % (Auto) 8.0 % [place] % (Auto) 2.8 % Eos % (Auto) 0.1 % Baso % (Auto) 0.1 % Neut # (Auto) 13.14 H (1.40-6.50) K/uL Lymph # (Auto) 1.18 L (1.20-3.40) K/uL [place] # (Auto) 0.42 (0.11-0.59) K/uL Eos # (Auto) 0.01 (0.00-0.50) K/uL Baso # (Auto) 0.01 (0.00-0.20) K/uL Immature Gran # (Auto) 0.04 (0.01-0.20) K/uL PT Cancelled INR Cancelled APTT Cancelled PTT Ratio Cancelled Sodium TNP Potassium TNP Chloride 106 (98-107) mmol/L Carbon Dioxide 25 (21-32) mmol/L Anion Gap TNP BUN 15 (6-23) mg/dl Creatinine 0.71 (0.6-1.2) mg/dl Est Cr Clr Drug Dosing 86.7 ml/min Est GFR ( Amer) 105.1 ml/min Est GFR (Non-Af Amer) 90.7 ml/min BUN/Creatinine Ratio 21.1 H (10-20) Glucose 144 H (70-99(Fasting)) mg/dl Calcium 9.1 (8.6-10.3) mg/dl Total Bilirubin 0.4 (0.2-1.0) mg/dl AST TNP ALT 16 (7-52) U/L Alkaline Phosphatase TNP Troponin I High Sens 4.1 (0-14) pg/ml Total Protein 8.3 (6.0-8.3) gm/dl Albumin TNP Globulin TNP Albumin/Globulin Ratio TNP Triglycerides (0-150) mg/dl Cholesterol (0-200) mg/dl LDL Cholesterol, Calc mg/dl VLDL Cholesterol, Calc (0-30) mg/dl HDL Cholesterol mg/dl Cholesterol/HDL Ratio (0-5) Lipase 7142 H (11-82) U/L Urine Color Urine Appearance (Clear) Urine pH (4.5-7.5) Ur Specific [place] (1.000-1.030) Urine Protein (Negative) Urine Glucose (UA) (Negative) Urine Ketones (Negative) Urine Blood (Negative) Urine Nitrite (Negative) Urine Bilirubin (Negative) Urine Urobilinogen (Negative) Ur Leukocyte Esterase (Negative) Resident Activity Tracking Resident Involvement: Resident Care Provided Care Provided: [facility]
[2023-10-29] MEDS: modafiniL 100 MG TAB PO SCH (11:18)
[2023-10-29] MEDS: ZOLPIDEM TARTRATE 5 MG TAB PO PRN (21:11)
[2023-10-30 06:37] LABS: Basophils # (auto) 0.02 K/uL (0.00-0.20); Basophils % (auto) 0.3 %; Eosinophils # (auto) 0.16 K/uL (0.00-0.50); Eosinophils % (auto) 2.5 %; Hematocrit (blood only) 33.6 % (37.0-47.0); Hemoglobin 11.3 g/dl (12.0-16.0); Immature Granulocytes # (auto) 0.02 K/uL (0.01-0.20); Immature Granulocytes % (auto) 0.3 %; Lymphocytes # (auto) 2.31 K/uL (1.20-3.40); Lymphocytes % (auto) 36.2 %; Mean Corpuscular Hemoglobin 29.9 pg (25.0-34.0); Mean Corpuscular Hgb Conc 33.6 g/dL (32.0-36.0); Mean Corpuscular Volume 88.9 fL (80.0-100.0); Mean Platelet Volume 10.7 fL (9.4-12.4); Monocytes # (auto) 0.58 K/uL (0.11-0.59); Monocytes % (auto) 9.1 %; Neutrophils # (auto) 3.29 K/uL (1.40-6.50); Neutrophils % (auto) 51.6 %; Platelet Count 216 K/uL (130-400); RDW Coefficient of Variation 13.2 % (11.5-14.5); RDW Standard Deviation 43.4 fL (36.4-46.3); Red Blood Count 3.78 M/uL (4.20-5.40); White Blood Count 6.38 K/ul (4.8-10.8)
[2023-10-30 06:56] LABS: BUN Creatinine Ratio 12.7 (10-20); Calcium 8.2 mg/dl (8.6-10.3); Creatinine Clr Calc Pharmacy 112.3 ml/min; Est GFR (African American) 115.7 ml/min; Est GFR (Non-African American) 99.8 ml/min; Potassium 3.8 mmol/L (3.5-5.1)
--- NOTE | 2023-10-30 09:35 | Hospitalist Progress Note ---
Date of Service October 30, 2023 Assessment & Plan (1) Acute pancreatitis: (2) Chronic migraine without aura: (3) Narcolepsy: (4) UTI (urinary tract infection): Plan 62 yo female patient with PMHx of migraines, narcolepsy, and recurrent pancreatitis who was admitted for management of acute pancreatitis. Acute pancreatitis - CT A/P: moderate acute pancreatitis without evidence of necrosis or acute peripancreatic fluid collection. No pancreatic mass noted. - Lipase > 7000 on admission -> 120 on 3/6 - H/o of cholecystectomy, No alcohol use for 12-13 years, TGs wnl; idiopathic vs ?topimax induced - less likely as patient has taken this for many years but currently on hold. - d/c IVF - pain control PRN - tolerating liquid diet - advance to regular diet Suprapubic tenderness - likely referred pain 2/2 pancreatitis. No dysuria or urinary frequency/urgency/CVA tenderness. UA does not appear infectious. Urine cx: Pin- point growth present, reincubating. - d/c abx at this time Migraines - Topamax held as above. Consult with PCP to possibly consider restarting Topamax or switching to an alternative migraine ppx. Dose of Amitriptyline was also recently increased which could serve as a migrane ppx Narcolepsy - Continue Amitriptyline, Methylphenidate, and Zolpidem Hypothyroidism - Last TSH from 2019 was ~4 - Continue Levothyroxine 100 mcg qam Dispo: Med/Surg Fluids: d/c Diet: advance to fulls for dinner Code Status: Full Admission and Anticipated Discharge Date Admission Date: October 28, 2023 Subjective Pt is a 62-year-old female with hx of pancreatitis (3x), GERD, migraines, narcolepsy, and IBS who presented to the ED yesterday for abdominal pain. Pt reports vomiting and was also diaphoretic during the pain onset. Pain was primarily in the epigastric region which radiated to the back. Currently, patient reports practically no more pain, just slight discomfort. Patient had a firm bowel movement this morning and is tolerating liquid diet well. Physical Exam Physical Exam: GENERAL: AAOx3, Afebrile, No acute distress EYES: EOM intact, CIRILO CARDIO: RRR, no r/m/g PULMONARY: CTA bilaterally, normal respiratory effort, no respiratory distress GI: soft. non-distended, slight tenderness to deep palpation of epigastric region, decreased bs, no CVA tenderness EXTREMITIES: no swelling in bilateral LE, no calf tenderness bilaterally, no edema SKIN: no rashes or bruises Results & Data Results & Data Vital Signs (Past 12 Hours) Vital Signs Temp Pulse Resp BP Pulse Ox O2 Del Method 10/30/23 07:38 36.5 C 69 16 132/78 96 Room Air
--- NOTE | 2023-10-30 13:52 | Discharge Summary ---
Date of Service October 30, 2023 Admission HPI Per Admitting Provider Ms. Sparks is a 62 y/o female with PMHx of Migraines, Narcolepsy, and prior episodes of acute pancreatitis who arrived to the ED due to epigastric pain associated to N/V, sweats, and shakiness that began at 10 am this morning. She had breakfast without any immediate response, but as the day went on she developed worsening epigastric pain that did not radiate anywhere else until it severe with 10/10 in intensity. Denies having any hematemesis, chest pain, SOB, syncope, weakness, malaise, or any other associated symptom. She has had 3 episodes of pancreatitis in the past, the most recent being 12-13 years ago, so she recognized the symptoms as likely pancreatitis and chose to not eat anything since her symptoms began. On arrival to the ED, she states her pain has improved somewhat but was still severe. She denies any history of drinking alcohol since her last episode of pancreatitis 13 years ago, and only family history she has of pancreatitis is of her grandfather. Surgical history remarkable for cholecys tectomy. She has a history of migraines, for which she takes Topamax. Denies NSAID use and only uses Tylenol as needed for pain control. ED course: NSS 1L, pain management with Dilaudid 0.5mg IV x1 Labs/Imaging: CBC without anemia and only remarkable for leukocytosis of 14.80 with neutrophilic predominance, CMP with no electrolyte disturbance, Creatinine of 0.71, Glucose of 144, AST of 42, ALT of 14, and Alk phos of 116. Lipid profile with normal Triglycerides (68). Lipase elevated at 7142. CXR unremarkable. Abdominal/Pelvic CT with IV contrast showing (1) Moderate acute pancreatitis without evidence of pancreatic necrosis or acute peripancreatic fluid collection, and (2) Colonic diverticulosis. No bowel obstruction or pneumoperitoneum noted. Principal Diagnosis Acute pancreatitis Discharge Exam GENERAL: AAOx3, Afebrile, No acute distress EYES: EOMI, PERRL CARDIO: RRR, no r/m/g, no carotid bruits, 2+ radial and distal pulses PULMONARY: CTA bilaterally, normal respiratory effort, no respiratory distress GI: soft. non-distended, mildly tender to palpation diffusely on deep palpation, no guarding EXTREMITIES: no swelling in bilateral LE, no calf tenderness bilaterally, no edema SKIN: no rashes or bruises Discharge Data Allergies Allergy/AdvReac Type Severity Reaction Status Date / Time No Known Allergies Allergy Verified 10/28/23 18:02 Consultations 10/28/23 18:18 ED Decision to Admit Stat Ordered Studies Laboratory Results WBC 6.38 K/ul (4.8-10.8) 10/30/23 05:33 RBC 3.78 M/uL (4.20-5.40) L 10/30/23 05:33 Hgb 11.3 g/dl (12.0-16.0) L 10/30/23 05:33 Hct 33.6 % (37.0-47.0) L 10/30/23 05:33 MCV 88.9 fL (80.0-100.0) 10/30/23 05:33 MCH 29.9 pg (25.0-34.0) 10/30/23 05:33 MCHC 33.6 g/dL (32.0-36.0) 10/30/23 05:33 RDW Std Deviation 43.4 fL (36.4-46.3) 10/30/23 05:33 RDW Coeff of Sondra 13.2 % (11.5-14.5) 10/30/23 05:33 Plt Count 216 K/uL (130-400) 10/30/23 05:33 MPV 10.7 fL (9.4-12.4) 10/30/23 05:33 Immature Gran % (Auto) 0.3 % 10/30/23 05:33 Neut % (Auto) 51.6 % 10/30/23 05:33 Lymph % (Auto) 36.2 % 10/30/23 05:33 Wythe % (Auto) 9.1 % 10/30/23 05:33 Eos % (Auto) 2.5 % 10/30/23 05:33 Baso % (Auto) 0.3 % 10/30/23 05:33 Neut # (Auto) 3.29 K/uL (1.40-6.50) 10/30/23 05:33 Lymph # (Auto) 2.31 K/uL (1.20-3.40) 10/30/23 05:33 Wythe # (Auto) 0.58 K/uL (0.11-0.59) 10/30/23 05:33 Eos # (Auto) 0.16 K/uL (0.00-0.50) 10/30/23 05:33 Baso # (Auto) 0.02 K/uL (0.00-0.20) 10/30/23 05:33 Immature Gran # (Auto) 0.02 K/uL (0.01-0.20) 10/30/23 05:33 PT 10.7 Seconds (9.0-12.0) 10/28/23 16:32 INR 1.0 (0.9-1.1) 10/28/23 16:32 APTT 30 Seconds (21-31) 10/28/23 16:32 PTT Ratio 1.1 10/28/23 16:32 Sodium 140 mmol/L (136-145) 10/30/23 05:33 Potassium 3.8 mmol/L (3.5-5.1) 10/30/23 05:33 Chloride 111 mmol/L (98-107) H 10/30/23 05:33 Carbon Dioxide 26 mmol/L (21-32) 10/30/23 05:33 Anion Gap 3 (3-11) 10/30/23 05:33 BUN 7 mg/dl (6-23) 10/30/23 05:33 Creatinine 0.55 mg/dl (0.6-1.2) L 10/30/23 05:33 Est Cr Clr Drug Dosing 112.3 ml/min 10/30/23 05:33 Est GFR ( Amer) 115.7 ml/min 10/30/23 05:33 Est GFR (Non-Af Amer) 99.8 ml/min 10/30/23 05:33 BUN/Creatinine Ratio 12.7 (10-20) 10/30/23 05:33 Glucose 86 mg/dl (70-99(Fasting)) 10/30/23 05:33 Calcium 8.2 mg/dl (8.6-10.3) L 10/30/23 05:33 Total Bilirubin 0.5 mg/dl (0.2-1.0) 10/29/23 07:00 AST 29 U/L (13-39) 10/29/23 07:00 ALT 11 U/L (7-52) 10/29/23 07:00 Alkaline Phosphatase 85 U/L (34-104) 10/29/23 07:00 Troponin I High Sens 4.1 pg/ml (0-14) 10/28/23 15:47 Total Protein 5.9 gm/dl (6.0-8.3) L D 10/29/23 07:00 Albumin 3.5 gm/dl (3.4-5.0) 10/29/23 07:00 Globulin 2.4 gm/dl (2.5-4.0) L 10/29/23 07:00 Albumin/Globulin Ratio 1.5 (0.9-2) 10/29/23 07:00 Triglycerides 68 mg/dl (0-150) 10/28/23 16:32 Cholesterol 225 mg/dl (0-200) H 10/28/23 16:32 LDL Cholesterol, Calc 114 mg/dl 10/28/23 16:32 VLDL Cholesterol, Calc 14 mg/dl (0-30) 10/28/23 16:32 HDL Cholesterol 97 mg/dl 10/28/23 16:32 Cholesterol/HDL Ratio 2.3 (0-5) 10/28/23 16:32 Lipase 140 U/L (11-82) H 10/30/23 05:33 Urine Color Yellow 10/28/23 22:29 Urine Appearance Clear (Clear) 10/28/23 22:29 Urine pH 7.5 (4.5-7.5) 10/28/23 22:29 Ur Specific Clayton > 1.045 (1.000-1.030) H 10/28/23 22:29 Urine Protein Negative (Negative) 10/28/23 22:29 Urine Glucose (UA) Negative (Negative) 10/28/23 22:29 Urine Ketones 2+ (Negative) H 10/28/23 22:29 Urine Blood Negative (Negative) 10/28/23 22:29 Urine Nitrite Negative (Negative) 10/28/23 22:29 Urine Bilirubin Negative (Negative) 10/28/23 22:29 Urine Urobilinogen Negative (Negative) 10/28/23 22:29 Ur Leukocyte Esterase Negative (Negative) 10/28/23 22:29 Impressions Chest X-Ray 10/28/23 15:40 XR chest 1V not portable HISTORY: 62 years-old Female Chest pain, nonspecific COMPARISON: 03/24/2010 TECHNIQUE: PA view the chest FINDINGS: Cardiomediastinal side the normal limits. No pneumothorax, pleural effusion or airspace collimation. Cholecystectomy. Bones appear grossly intact. IMPRESSION: No acute process. ACT 112: Negative or not required by law. The above report was generated using voice recognition software. It may contain grammatical, syntax or spelling errors. Electronically signed by: Salvador Jean M.D. 10/28/2023 4:56 PM Abdomen/Pelvis CT 10/28/23 16:[address] WITH IV CONTRAST CT DOSE: 1125.14 mGy.cm HISTORY: Acute generalized abdominal pain abd pain TECHNIQUE: Multiaxial CT images of the abdomen and pelvis were performed following the IV administration of 86 cc of Optiray, A dose lowering technique was utilized adhering to the principles of ALARA. COMPARISON STUDY: 02/04/2009 FINDINGS: No acute lower thoracic abnormality. No free air. Unremarkable spleen, and adrenal glands. Cholecystectomy with likely postsurgical mild intrahepatic and extrahepatic biliary ductal dilation. Patency of the hepatic and portal veins. The splenic vein also appears patent. Interstitial and peripancreatic edema with small amount of ascites noted within the lesser sac. Homogeneous enhancement of the pancreas. No pancreatic mass, acute pancreatic fluid collection or pancreatic ductal dilation is identified. Mild reactive wall thickening of the duodenal. Tiny hiatal hernia. No hydronephrosis. Unremarkable urinary bladder and uterus. Mild atherosclerosis of the aorta. No lymphadenopathy. Colonic diverticulosis. Mild fecal retention. Normal appendix. No acute fracture. IMPRESSION: 1. Moderate acute pancreatitis. No evidence of pancreatic necrosis or acute peripancreatic fluid collection. 2. Cholecystectomy. 3. No bowel obstruction or pneumoperitoneum. 4. Colonic diverticulosis. ACT 112: Negative or not required by law. The above report was generated using voice recognition software. It may contain grammatical, syntax or spelling errors. Electronically signed by: Salvador Jean M.D. 10/28/2023 5:50 PM Hospital Course (1) Acute pancreatitis: 62 yo female patient with PMHx of migraines, narcolepsy, and recurrent pancreatitis who was admitted for management of acute pancreatitis. Acute pancreatitis - CT A/P: moderate acute pancreatitis without evidence of necrosis or acute colt pancreatic fluid collection. No pancreatic mass noted. - Lipase > 7000 on admission, improved - H/o of cholecystectomy, No alcohol use for 12-13 years, TGs wnl; idiopathic vs ?topimax induced - discontinue topimax at this time. Discuss with PCP for re- initiation or alternative. - tolerating regular diet prior to discharge; pain control with tylenol/NSAIDs - f/u PCP Suprapubic tenderness - likely referred pain 2/2 pancreatitis. No dysuria or urinary frequency/urgency. Urine cx neg. Migraines - Topamax d/c'd as above. May consider an alternative to migraine ppx. She is on amitriptyline as well. Narcolepsy - Cont. Amitriptyline, Methylphenidate, and Zolpidem Hypothyroidism - Last TSH from 2019 was ~4 - Cont. Levothyroxine (2) Chronic migraine without aura: (3) Narcolepsy: (4) UTI (urinary tract infection): Total Time Total Time Spent Total Time Spent (In Minutes): 30 Discharge Plan Discharge Items Patient Disposition: Home - Self-Care Reason For Visit: ABDOMINAL PAIN Discharge Diagnosis: acute pancreatitis Activity: Per Instructions section Non-emergency contact: Primary Care Provider Call non-emergency contact if: you have any medication questions Follow-up/Referrals: Christopher Yarbrough MD [Primary Care Provider] - Diet: Low Fat Addtl Attending Provider Instructions: You were admitted to the hospital for pancreatitis. You were treated with fluids and bowel rest. You recovered quickly and were able to tolerate solid food by the second day of your admission. Your lab work improved as well. We were unable to determine a specific cause of your episode of pancreatitis. There is a chance that it was caused by your topiramate for migraines. You should talk to your PCP before restarting this medication. A discharge summary will be sent to your primary care physician to ensure continuity of care. Please bring this discharge summary with you to your next office appointment so that your provider can review it at that time. Follow-up appointments: Make a follow-up appointment with your PCP within the next week. It is very important that you follow up with them shortly after discharge from the hospital. Keep all your follow-up appointments as already scheduled. If you cannot make an appointment, notify your provider. Medications: Your medication list has been reviewed and reconciled upon discharge to ensure accuracy and continuity of care. An updated list of all your medications is included with your hospital discharge paperwork. Please review this list closely, and make note of any changes. Take your medications as instructed; do not skip a dose of your medicines. Make sure all of your doctors know every medicine you are taking (including hemu-shf-hwxynax medicines, vitamins, and supplements). Call your primary care provider before taking any new medicines (including kmmq-rxj-nludkle medicines, vitamins, and supplements), because some of these may interact with your current medications, or may make your symptoms worse. Tell your primary care provider if you cannot afford your medications. CONTACT YOUR PRIMARY CARE PROVIDER if you experience any of the following: Increased abdominal pain Inability to tolerate food or drink Difficulty following your treatment plan, or difficulty taking medications CALL 911 OR GO TO THE EMERGENCY DEPARTMENT if you experience any of the following: Sudden, severe abdominal pain or nausea/vomiting Severe chest pain, or chest pain that radiates (moves) to your jaw or arm Sudden, severe shortness of breath or difficulty breathing Thank you for allowing us to participate in your care. Pending Studies at Discharge: No Stand-Alone Forms: My [facility] Medications and DC Order Prescriptions: Continued methylphenidate HCl 20 mg tablet 20 mg PO BID Qty: 180 0RF levothyroxine 100 mcg capsule 100 mcg PO DAILYBB amitriptyline 10 mg tablet 10 mg PO HS Patient Comments: 10 mg PO take 1/2 tablet at bedtime; modafinil 200 mg tablet 200 mg PO QDL zolpidem 5 mg tablet 5 - 10 mg PO HS Discontinued topiramate [Topamax] 25 mg tablet 12.5 mg PO BID Discharge Orders: Discharge Order (Routine); Ordered 10/30/23 Ordered By: Paco Gil/Other Patient Handouts: Low-Fat Cooking Tips, Adding Flavor to Low-Fat Meals, ED Diet, Low Fat Admission Data Admit Date/Time: 10/28/23 19:03 Attending Provider: Nelly Boykin Admit Provider: Ofelia Szymanski Primary Care Provider: Christopher Yarbrough Other Providers: Faisal Gillespie Other Interventions: Discharge Summary Assessment (RN) Last Done: 10/30/23 13:13 Supervising Physician Co-Signing Physician Notes Attending Physician Supervision Note: I independently interviewed and examined the patient and verified the hunt history and physical, reviewed labs and image studies and agree with findings and care plan noted above. pain resolved. tolerated regular meal. comfortable. abdomen - BS +, soft, non-tender, no guarding/rigidity. SIRS of non-infectious origin w/o acute organ dysfunction - d/t pancreatitis. s/p aggressive IVF resuscitation. see below Acute pancreatitis with h/o recurrence - No alc use, no gallstones on CT/s/p choley. normal triglycerides. held topamax on admission for possible etiology. - Kept on IVF and initially NPO, diet advanced later and tolerated well. - discharge home. Migraine - to address topamax replacement if needed with pcp. already on amitriptyline though.
== END 2023-10-30 14:15 | disposition home or self-care (01) ==
LOC: ED 15:23 → INTOOBSV 19:03 → 3N 19:03 → SUATTDRO 19:03 → 3N 22:00